=== PATIENT | male | born 1995 | race Two or more races ===

== ENCOUNTER 2017-01-11 16:05 | Emergency (ER) | payer SELFPAY ==
[~2017-01-11] VITALS: Ht 180.3 cm; Wt 90.7 kg
[2017-01-11 16:05] VITALS: BP 126/73
[2017-01-11] MEDS ORDERED: KETOROLAC TROMETHAMINE INJ 60 MG/2 ML VIAL IM ONE ×2 (16:42→17:00)
== END 2017-01-11 16:59 | disposition home or self-care (01) ==
LOC: ER 16:08
DX: R51 Headache (principal); Z88.0 Allergy status to penicillin
CPT/HCPCS: 96372; 99283; A4606; J1885; Z7610